=== PATIENT | male | born 1995 ===

== ENCOUNTER → 2016-10-30 | Outpatient (CLI) | payer OTHER ==
--- NOTE | 2016-10-30 13:14 | DIAGNOSTIC IMAGING REPORT ---
RIGHT KNEE 4 VIEWS HISTORY: RIGHT KNEE PAIN Right COMPARISON: None. FINDINGS: There is no fracture or dislocation. Anterior soft tissue swelling. No significant knee effusion. No radiopaque foreign bodies. IMPRESSION: No fractures. Anterior soft tissue swelling. Electronically signed by: Dalton Lawton M.D. 10/30/2016 1:13 PM Dictated Date/Time: 10/30/2016 1:11 PM
== END | disposition home or self-care (01) ==
LOC: C.RDSM 12:59
PROVIDERS: ATTEND Physical Medicine & Rehabilitation Sports Medicine
DX: M25.561 Pain in right knee (principal)